=== PATIENT | female | born 1995 | race Caucasian/White ===

== ENCOUNTER 2022-08-24 23:37 | Emergency (ER) | payer MEDICAID ==
[~2022-08-24] VITALS: Ht 157.5 cm; Wt 54.9 kg
[2022-08-25] MEDS ORDERED: THIAMINE HCL 200 MG/2 ML VIAL ONE (00:13)
[2022-08-25] MEDS ORDERED: CHLORDIAZEPOXIDE HCL 25 MG CAPSULE ONE ×2 (00:14→06:03)
[2022-08-25] MEDS ORDERED: LORAZEPAM 2 MG/1 ML VIAL ONE ×2 (00:14→04:30)
[2022-08-25] MEDS ORDERED: CHLORDIAZEPOXIDE HCL 25 MG CAPSULE PO ONE ×2 (00:15→05:15)
[2022-08-25] MEDS ORDERED: THIAMINE HCL 200 MG/2 ML VIAL IV ONE (00:15)
[2022-08-25] MEDS ORDERED: LORAZEPAM 2 MG/1 ML VIAL IV ONE ×2 (00:15→04:30)
[2022-08-25] MEDS ORDERED: IV NORMAL SALINE 1000 ML BAG IV ONE (00:15)
--- NOTE | 2022-08-25 00:30 | NUR ---
Patient is restless and has not been able to sit still. She pulled out IV in LT AC. MD notified and Hard Four point restraints ordered and in place.
[2022-08-25 00:31] LABS: CREATININE 0.6 mg/dL (0.6-1.3); POTASSIUM 3.2 mmol/L (3.5-5.1)
[2022-08-25 00:40] LABS: HEMATOCRIT 37.1 % (31.2-41.9); MEAN CORPUSCULAR HEMOGLOBIN 32.2 uug (24.7-32.8); MEAN CORPUSCULAR VOLUME 97.8 fL (75.5-95.3); PLATELET COUNT (AUTO) 313 K/uL (179-408)
[2022-08-25 01:09] LABS: BILIRUBIN,DIRECT 0.1 mg/dL (0.0-0.2); BILIRUBIN,TOTAL 0.2 mg/dL (0.2-1.0); TOTAL PROTEIN, SERUM 7.1 g/dL (6.4-8.2)
[2022-08-25] MEDS ORDERED: POTASSIUM BICARBONATE/CIT AC 25 MEQ TABLET.EFF PO ONE (01:15)
[2022-08-25 01:26] LABS: MAGNESIUM 1.6 mg/dL (1.8-2.4)
--- NOTE | 2022-08-25 01:30 | NUR ---
Note ely in EDM - 08/25/22 at 0628 by LAUREL Patient is restless and has not been able to sit still. She pulled out IV in LT AC. notified and Hard Four point restraints ordered and in place.
[2022-08-25] MEDS ORDERED: CYANOCOBALAMIN 1000 MCG/ML VIAL IM ONE (02:00)
--- NOTE | 2022-08-25 02:10 | NUR ---
Patient has calmed down and restraints have been removed. MD notified.
[2022-08-25 02:49] LABS: *BILIRUBIN,URIN NEGATIVE (NEGATIVE); *BLOOD, URINE NEGATIVE (NEGATIVE); *CLARITY,URINE CLEAR (CLEAR); *COLOR,URINE YELLOW (YELLOW); *KETONES,URINE TRACE (NEGATIVE); *UROBILINOGEN,URINE 0.2 E.U./dl (NORMAL); LEUKOCYTE ESTERASE ,URINE NEGATIVE (NEGATIVE); NITRITE, URINE NEGATIVE (NEGATIVE); UGLUCOSE TRACE (NEGATIVE)
[2022-08-25 02:59] LABS: *AMPHETAMINE, URINE NEGATIVE (NEGATIVE); *CANNABINOID, URINE NEGATIVE (NEGATIVE); *COCCAINE, URINE NEGATIVE (NEGATIVE); *PHENCYCLIDINE SCREEN,URINE NEGATIVE (NEGATIVE)
[2022-08-25] MEDS ORDERED: MAGNESIUM SULFATE/D5W 300 ML ONE (04:28)
[2022-08-25] MEDS ORDERED: POTASSIUM BICARBONATE/CIT AC 25 MEQ TABLET.EFF ONE (04:28)
[2022-08-25] MEDS ORDERED: CYANOCOBALAMIN 1000 MCG/ML VIAL ONE (04:29)
[2022-08-25] MEDS: MAGNESIUM SULFATE/D5W 100 ML IV SCH ×3 (04:35→05:35)
[2022-08-25] MEDS ORDERED: CHLO25CA22 PO (04:54)
[2022-08-25] MEDS ORDERED: SYRI-29 MC (04:57)
[2022-08-25] MEDS ORDERED: MECO10006 IM (04:57)
--- NOTE | 2022-08-25 05:10 | NUR ---
Patient is resting in bed comforably. Rise and fall of chest noted.
--- NOTE | 2022-08-25 07:00 | NUR ---
PT. endorsed by CECIL GREENE at this time. Pt. asleep at this time. discharge papers are ready
--- NOTE | 2022-08-25 08:15 | NUR ---
Patient discharged to home in stable condition. Written and verbal after care instructions given. Patient verbalizes understanding of instructions. Stressed follow up or return to ER for worsening s/s.
[2022-08-25 08:16] VITALS: BP 118/87
== END 2022-08-25 08:17 | disposition home or self-care (01) ==
LOC: ER 23:43
DX: F23 Brief psychotic disorder (principal); E87.6 Hypokalemia; E83.42 Hypomagnesemia; F10.121 Alcohol abuse with intoxication delirium; E53.8 Deficiency of other specified B group vitamins; Z88.8 Allergy status to other drugs, medicaments and biological substances; Z79.899 Other long term (current) drug therapy; Y90.7 Blood alcohol level of 200-239 mg/100 ml
CPT/HCPCS: 99284; 80076; 80048; 81003; 82140; 82607; 83735; 85025; 85730; 36415; 93005; 96361; 96365; 96366; 96375; 96376; 96372; 80320; 80307; J3420; J2060 ×2; J3475; J3411; J7040; A4663; C1758; G0480